=== PATIENT | female | born 1955 | race Caucasian/White ===

== ENCOUNTER 2021-05-18 07:54 | Day surgery (SDC) | payer OTHER ==
[2021-05-17 11:59] LABS: Absolute Lymphocytes (CBC) 1.9 K/uL (0.7-4.9); Hematocrit 42.8 % (36.0-45.0); MPV 7.2 fL (7.6-11.3); RBC Red Blood Cell Count 4.64 M/uL (3.86-4.86)
[2021-05-17 12:05] LABS: Urine Appearance CLEAR (Clear); Urine Bilirubin NEGATIVE (Negative); Urine Blood NEGATIVE (Negative); Urine Color YELLOW (Yellow); Urine Glucose NEGATIVE (Negative); Urine Microscopic Reflex NO UMIC; Urine Protein NEGATIVE (Negative); Urine Specific Gravity 1.015 (1.005-1.030); Urine Urobilinogen 0.2 mg/dL (0.2-1.0); Urine pH 6.5 (5.0-7.0)
--- NOTE | 2021-05-17 12:38 | RAD REPORT ---
EXAM DESCRIPTION: RAD - Chest Pa And Lat (2 Views) - 05/17/2021 12:23 pm CLINICAL HISTORY: pre procedure screening Chest pain. COMPARISON: No comparisons FINDINGS: Small calcified granuloma is present left mid lung. The lungs are otherwise clear. The hea rt is normal in size. No displaced fractures. Thoracic spondylosis.
[2021-05-18] MEDS ORDERED: CEFAZOLIN/NS 1gm 1 GM/50 ML BAG ONE (08:01)
[2021-05-18] MEDS ORDERED: Ringers Lactate 1,000 ML IV ONE (08:01)
[2021-05-18] MEDS ORDERED: MIDAZOLAM HCL 2 MG/2 ML INJ ONE (08:38)
[2021-05-18] MEDS ORDERED: FENTANYL CITR 100 MCG/2 ML ONE (08:38)
[2021-05-18] MEDS ORDERED: LIDOCAINE 2% MPF 5 ML VIAL ONE (08:38)
[2021-05-18] MEDS ORDERED: ONDANSETRON 4 MG/2 ML VIAL ONE (08:38)
[2021-05-18] MEDS ORDERED: propofoL 200 MG/20 ML VIAL IV ONE (08:38)
[2021-05-18] MEDS ORDERED: ACETAMINOPHEN 500 MG TAB ONE (08:43)
[2021-05-18] MEDS ORDERED: CELECOXIB 100 MG CAPSULE ONE (08:44)
[2021-05-18] MEDS ORDERED: CELECOXIB 100 MG CAPSULE PO ONE (08:45)
[2021-05-18] MEDS ORDERED: ACETAMINOPHEN 500 MG TAB PO ONE (08:45)
[2021-05-18] MEDS ORDERED: dexAMETHasone 10 MG/ML VIAL ONE (08:46)
--- NOTE | 2021-05-18 09:01 | EKG ---
Test Date: 2021-05-17 Test Time: 11:56:21 [employer] Manager: IMANI MEASUREMENT RESULTS: Intervals: Rate: 60 [place]: 214 QRSD: 68 QT: 408 QTc: 408 [place]: P: 65 [place]: 214 QRS: 32 T: 34 INTERPRETIVE STATEMENTS: Sinus rhythm with 1st degree AV block Otherwise normal ECG No previous ECG available for comparison Electronically Signed On 05-18-21 08:57:58 CONFIDENTIAL INVESTIGATOR by Alphonse Schafer
[2021-05-18] MEDS ORDERED: EPHEDRINE SULF 50 MG/ML VIAL ONE (09:20)
[2021-05-18] MEDS ORDERED: GLYCOPYRROLATE 0.2 MG/ML SYR ONE (09:22)
[2021-05-18] MEDS: HYDROMORPHONE HCL 1 MG/ML INJ ONE ×4 (09:57→10:17)
--- NOTE | 2021-05-18 10:22 | OP ---
Surgeon: Lg Shields MD Preoperative Diagnosis: Bilateral carpal tunnel syndrome. Postoperative Diagnosis: Bilateral carpal tunnel syndrome. Procedure: Left carpal tunnel release. Anesthesia: General. Procedure In Detail: After satisfactory induction of general anesthesia, the left hand was prepped w ith Betadine scrub and Betadine paint. Dry sterile drapes applied in the usual manner. The arm was elevated, exsanguinated with an Esmarch, tourniquet inflated to 250 mmHg. Hand was placed on Roto Lo ck table. Skin incision was made zigzagging and approached the wrist flexion crease, then dissected through the transverse carpal ligament. Antebrachial fascia was opened with scissors and the wound w as opened from the antebrachial to the superficial arch. Motor branch median nerve was identified ra dially and the floor was inspected, no masses. Tourniquet released. Electrocautery was used for hem ostasis. Wound closed with 4-0 Prolene vertical mattress half-buried mattress of simple sutures. Dr garciaed with Xeroform, Kerlix, and a splint holding wrist in 10 degrees of dorsiflexion. The patient t olerated the procedure well and returned to recovery. GH/MODL Voice ID: [id number] Report ID: [id number]
--- NOTE | 2021-05-18 10:28 | HP ---
Date of Admission: 05/18/2021 History Of Present Illness: A 66-year-old white female, who has hand numbness for several months. She was diagnosed on EMG with bilateral carpal tunnel syndrome. She wants her left hand done first, she is right dominant. Past Medical History: She has no medical problems. Past Surgical History: Previous , hysterectomy, cataracts, meniscus repair and previous finger surgery. She does not smoke. Allergies: NO ALLERGIES. Social History: Does not drink. Physical Examination: She is 5 feet 2 inches, 250 pounds. She has a positive Tinel sign. Assessment: Bilateral carpal tunnel syndrome. Plan: Carpal tunnel release on the left hand. DEAN/IZZY Voice ID: [id number] [facility] FACILITYAdamaris
[2021-05-18] MEDS ORDERED: CODEINE 30MG/APAP 300MG TAB ONE (10:48)
[2021-05-18 14:31] VITALS: BP 100/82; TEMP 97.8; O2SAT 99
== END 2021-05-18 11:15 | disposition home or self-care (01) ==
LOC: OR 07:54
PROVIDERS: ATTEND Specialist
PROC: 01N50ZZ Release Median Nerve, Open Approach (ICD-10-PCS; principal; 2021-05-18 09:00)
DX: G56.03 Carpal tunnel syndrome, bilateral upper limbs (principal); Z20.822 Contact with and (suspected) exposure to COVID-19
CPT/HCPCS: 36415; 71046; 81003; 85025; 93005; J0690; J1100; J1170; J2250; J2405; J2704; J3010; J7120; U0003